=== PATIENT | male | born 1970 ===

== ENCOUNTER 2024-04-06 06:14 | Day surgery (SDC) | payer BC, SELFPAY | END 2024-04-06 08:40 | disposition home or self-care (01) | LOC: GI 06:14 | PROVIDERS: ATTENDING PHYSICIAN Internal Medicine; FAMILY PHYSICIAN Family Medicine | DX: Z12.11 Encounter for screening for malignant neoplasm of colon (principal); K64.8 Other hemorrhoids; Q43.8 Other specified congenital malformations of intestine | CPT/HCPCS: G0121 ==

== ENCOUNTER 2024-10-17 18:33 | Emergency (ER) | payer BC, SELFPAY ==
[2024-10-17 18:37] VITALS: BP 127/94
--- NOTE | 2024-10-17 20:08 | ED.GENMED ---
History of Present Illness
General
Chief Complaint: Musculo-Skeletal Complaint
Source: patient
Exam Limitations: none
Time Seen by Provider: 10/17/24 19:56
History of Present Illness
History of Present Illness:
See MDM
Past History
Past History
ED Past Medical History: None
ED Past Surgical History: Other (Hernia repair)
Social History
Tobacco: Non-smoker
Alcohol: None
Phy Exam
Physical Exam
Physical Exam:
See MDM
Course
Orders/Labs/Results
Orders:
Orders
10/17/24 18:33
Ankle, Right 3 view CR [CR Ankle - Right Min 3 Views *] Urgent
Comment:
Reason For Exam: injury
10/17/24 20:07
Crutches-Treatment ONCE
boot [Ortho Boot Right- Treatment] ONCE
Short or tall?: Short
Vital Signs
Initial and Last Documented VS:
Initial Vital Signs
Temp Pulse Resp BP Pulse Ox
99 F 104 16 127/94 98
10/17/24 18:37 10/17/24 18:37 10/17/24 18:37 10/17/24 18:37 10/17/24 18:37
Last Documented Vital Signs
Temp Pulse Resp BP Pulse Ox
99 F 104 16 127/94 98
10/17/24 18:37 10/17/24 18:37 10/17/24 18:37 10/17/24 18:37 10/17/24 18:37
MDM/Problems Addressed
Differential Diagnosis Includes:
HPI and MDM Narrative:
54-year-old male presenting for evaluation of Right ankle injury. Patient was playing ice hockey and he twisted his right ankle. Patient states he heard a pop. Patient having pain with ambulating. Denies numbness or tingling. X-ray done prior
to my assessment. No obvious fracture. On exam, he has medial and lateral malleolus swelling. He does have some pain with ambulating but the joint itself is stable. The distal foot is also neurovascularly intact. We discussed the possibility of
ligament or tendon injury. Will place in boot and discussed crutches and follow-up with podiatry
Physical exam
General: Well appearing and non-toxic
HEENT: protecting airway
Neck: appears supple
CV: No evidence of cyanosis
Resp: No accessory muscle use
Abd: Non-distended
Extremities: Right medial and lateral malleolus swelling. Joint is stable. Distal extremity neurovascular intact
Neuro: alert
Psych: Normal affect
Skin: Intact
Problems Addressed including Acute and Chronic Conditions affecting care:
1. Right ankle injury
Acuity: acute
Prognosis: stable
Details: X-ray negative. Discussed ligament versus tendon injury and outpatient follow-up with podiatry
Differential Diagnosis (but not limited to): Ankle fracture, ankle sprain
Testing considered: Foot x-ray
Drug therapy (if applicable): OTC meds, please see d/c instruction regarding Rx drugs
Amount and/or Complexity of Data Reviewed
Clinical info obtained from: Patient
External data reviewed: N/A
Labs I independently reviewed (but not limited to): N/A
Radiology: X-ray independently reviewed: Ankle x-ray negative for fracture
Pulse Ox: not hypoxic
EKG independently reviewed: N/A
Dictionary Editor: N/A
Critical Care: N/A
Risk of Complication:
Social Determinants of health: Good social support
Discussed with other providers: N/A
Escalation of Care includes Admit/Obs: After being observed in the Emergency Department, pt stable for discharge.
Occasional wrong word or 'sound a like' substitutions may have occurred due to the inherent limitations of voice recognition software. Read the chart carefully and recognize, using context, where substitutions have occurred.
*Critical Care Note
Total Time (30-74mins, 75-104mins- exclusive of procedures): Not Applicable
ED Attending Note
-
Portions of this chart may have been created with voice recognition software.� Occasional wrong word or��sound alike� substitutions may have occurred due to the inherent limitations of voice recognition software.
Discharge Plan
Departure
Patient Disposition: Home (Routine Discharge)
Date of Disposition: 10/17/24
Time of Disposition: 20:16
Patient with high blood pressure during this ER visit?: No
Discharge Problem:
Ankle sprain
Referrals:
Anselmo Beck DPM [Active, Podiatry]
Activity Restrictions/Additional Instructions:
Please return for any worsening symptoms.
You may return at any time if you have further concerns.
Please follow up with left foot doctor at the first available appointment, preferably this week.
Even though the x-ray is negative, there is still concern for possible ligament or tendon injury.
Thank you for choosing [facility].
Interventions
Interventions:
*Risk Screen - Suicide Last Done: 10/17/24 18:37
*General Assessment Last Done: 10/17/24 18:37
*Neglect/Abuse Screening Last Done: 10/17/24 18:37
Discharge Date and Time
Print Language: SAMOAN
== END 2024-10-17 20:44 | disposition home or self-care (01) ==
LOC: EMR 18:33
PROVIDERS: EMERGENCY PHYSICIAN Student in an Organized Health Care Education/Training Program; FAMILY PHYSICIAN Family Medicine
DX: S93.401A Sprain of unspecified ligament of right ankle, initial encounter (principal); X50.1XXA Overexertion from prolonged static or awkward postures, initial encounter; Y93.22 Activity, ice hockey; Y92.330 Ice skating rink (indoor) (outdoor) as the place of occurrence of the external cause
CPT/HCPCS: 99283; 29515; 73610